=== PATIENT | female | born 1930 | race Caucasian/White ===

== ENCOUNTER 2017-05-27 07:07 | Inpatient (IN) | payer MEDICARE, OTHER ==
--- NOTE | 2017-05-27 08:10 | RAD ---
SINGLE VIEW OF THE CHEST: DATE: 08/19/16. HISTORY: Rectal bleeding for 3-4 days and altered mental status. FINDINGS: A single view of the chest shows a normal-size cardiomediastinal silhouette with atherosclerotic lianne cifications in the aorta. There is no evidence of consolidation, mass, or pleural effusion. Verteb roplasty cement is seen in the spine. IMPRESSION: 1. No evidence of acute cardiopulmonary disease. 2. Atherosclerotic disease. POS: [facility]
[2017-05-27 08:50] LABS: Red Blood Cell (RBC) Count 2.64 mill/uL (4.20-5.40); White Blood Cell (WBC) Count 6.4 thou/uL (4.8-10.8)
[2017-05-27 08:56] LABS: #Eosinphils 0.1 thou/uL (0.0-0.7); #Lymphocytes 1.9 thou/uL (1.20-3.40); #Monocytes 0.7 thou/uL (0.11-0.59); #Neutrophils 3.7 thou/uL (1.40-6.50); %Basophils 0.8 % (0.0-1.0); %Eosinophils 1.9 % (0.0-10.0); %Lymphocytes 29.6 % (21.0-51.0); %Monocytes 10.1 % (0.0-10.0); Mean Platelet Volume 9.4 fL (7.4-10.4)
[2017-05-27 09:07] LABS: ALT (SGPT) 9 U/L (8-55); AST (SGOT) 14 U/L (5-34); Alkaline Phosphatase 59 U/L (40-150); Anion Gap 12 mmol/L (10-20); BUN (Urea Nitrogen) 29 mg/dL (9.8-20.1); Bilirubin, Total 0.3 mg/dL (0.2-1.2); CK (CPK) 28 U/L (29-168); Calc. Creatinine Clearance 0 mL/min (70-130); Calcium 8.4 mg/dL (7.8-10.44); Carbon Dioxide 26 mmol/L (23-31); Chloride 104 mmol/L (98-107); Estimated GFR-MDRD 69; Globulin 2.6 g/dL (2.4-3.5); Magnesium 2.1 mg/dL (1.6-2.6); Protein, Total 5.9 g/dL (6.0-8.3)
[2017-05-27 09:12] LABS: Troponin I Less than 0.010 ng/mL (< 0.028)
[2017-05-27 10:28] LABS: Bilirubin Negative (Negative); Blood, Urine Negative (Negative); Glucose, Urine (Dipstick) Negative (Negative); Ketone, Urine Negative (Negative); Nitrite Positive (Negative); Protein, Urine (Dipstick) Negative (Neg-Trace); Urobilinogen 0.2 mg/dL (0.2-1.0)
[2017-05-27 10:30] LABS: Bacteria/HPF 4+ HPF (None Seen); Hyaline Casts/LPF 0-3 HYALINE CAST LPF (0-3 Hyaline); RBC/HPF 0-3 HPF (0-3); Squamous Epithelial 0-3 HPF (0-3)
[2017-05-27 10:40] LABS: Renal Epithelial None Seen HPF (0-3); Transitional Epithelial NONE SEEN HPF (0-3)
[2017-05-27] MEDS ORDERED: Ondansetron HCl/PF 4 MG/2 ML Vial IVP PRN ×2 (11:18→11:23)
[2017-05-27] MEDS ORDERED: Ondansetron ODT 4 MG TAB PO PRN ×2 (11:18→11:23)
[2017-05-27] MEDS ORDERED: Acetaminophen 325 MG TAB PO PRN ×2 (11:19→11:23)
--- NOTE | 2017-05-27 11:19 | CT ---
CT OF ABDOMEN AND PELVIS WITH IV CONTRAST: Date: 05/27/17 INDICATION: History of rectal bleeding, currently on Plavix. COMPARISON: None. FINDINGS: There is mild bibasilar atelectasis. Gallbladder is surgically absent. The liver, spleen, pancreas, and adrenal glands appear within normal limits. There is a 1.7 cm gastr ic diverticulum seen off the posterior aspect of the fundus. There are small left renal cysts. No hydronephrosis evident. No free fluid is evident. There is wall thickening involving one segment of the distal transverse colon, best seen on image 45 of series 2, which may reflect an area of focal colitis; however, malignancy cannot be excluded wit hin this location. This is also seen on image 37 of series 601. Respiratory motion artifact slightly limits image detail. No drainable fluid collection is evident. There is a mild amount of retained stool within the colon. There are a few scattered colonic diverticula. The bladder is unremarkable. There is a hip screw and side plate seen within the right proximal femur traversing a healed right i ntertrochanteric hip fracture. There is diffuse osteopenia. There are degenerative changes of the sy mphysis pubis. There is vertebroplasty change involving T11, T12, L1, and L2. There is a stable infe rior end plate compression abnormality of L3. There are mild compression abnormalities involving T9 and T10 of undetermined chronicity. IMPRESSION: 1. Focal area of wall thickening involving the distal transverse colon may reflect focal region of colitis; however, an annular mass within this location cannot be entirely excluded. Recommend GI con sultation and consideration for endoscopy. 2. Age-indeterminate compression abnormalities of T9 and T10. 3. Stable inferior end plate compression abnormality of L3 and stable compression abnormalities wit h vertebroplasty change of T11 through L2. 4. Left renal cyst. 5. Bibasilar atelectasis. 6. Cholecystectomy. POS: [facility]
[2017-05-27] MEDS ORDERED: Mag-Al 1200 mg/1200 mg/30 ML UDCUP PO PRN (11:23)
[2017-05-27] MEDS ORDERED: Eucerin (Mineral Oil/Petrolatum,White) 30 gm Jar TOP PRN (11:23)
[2017-05-27] MEDS ORDERED: Loratadine 10 MG TAB PO PRN (11:23)
[2017-05-27] MEDS ORDERED: Artificial Tears 18 DROP/0.9 ML EA EYE PRN (11:23)
[2017-05-27] MEDS ORDERED: Diabetic Tussin 200 MG/10 ML UDCUP PO PRN (11:23)
[2017-05-27] MEDS ORDERED: Milk Of Magnesia 30 ML UDCUP PO PRN (11:23)
[2017-05-27] MEDS ORDERED: Sodium Chloride 0.65% Nasal 44 ML BOT EA NARE PRN (11:23)
[2017-05-27] MEDS ORDERED: Senokot 8.6 MG TAB PO PRN (11:23)
[2017-05-27] MEDS ORDERED: Loperamide HCl 2 MG CAP PO PRN (11:23)
[2017-05-27] MEDS ORDERED: Sodium Chloride 0.9% 1,000 ML IV SCH (11:30)
[2017-05-27 13:40] VITALS: BMI 20.5
[2017-05-27] MEDS ORDERED: ISOVUE-370 76%-LOCM 1 ML ONE (13:40)
[2017-05-27] MEDS: Sodium Chloride 0.9% 1,000 ML IV SCH ×2 (13:46→22:13)
--- NOTE | 2017-05-27 14:09 | CON ---
DATE OF CONSULTATION: 05/27/2017 HISTORY OF PRESENT ILLNESS: The patient is an 86-year-old female who was referred from [facility] for GI bleeding. The patient is demented and adds nothing to history of present illn ess. According to family members, the patient had a similar GI bleed and this may have been 8-9 yea rs ago in a different location. Family is unsure what workup was performed. PAST MEDICAL HISTORY: Includes hemochromatosis, altered mental status, delusional disorders, chroni c obstructive pulmonary disease, hyperlipidemia, dementia, osteoarthritis, nontraumatic intercerebra l hemorrhage, femur fracture, hypertension. PAST SURGICAL HISTORY: Cataract surgery, liver biopsy, bunionectomy, back surgery. ALLERGIES: No known allergies. MEDICATIONS: Nuedexta 1 p.o. b.i.d., potassium chloride 10 mEq 1 p.o. daily, citalopram 20 mg p.o. daily, Exelon 1 patch daily, Plavix 75 mg daily, lisinopril 10 mg p.o. daily, tramadol 50 mg 2 p.o. daily, Tylenol p.o. q.6 h. p.r.n., Ativan 0.5 mg 1 p.o. t.i.d., melatonin 5 mg 1 p.o. daily. FAMILY HISTORY: Unobtainable. REVIEW OF SYSTEMS: Unobtainable. PHYSICAL EXAMINATION: GENERAL: Shows a pale elderly female in no acute distress. VITAL SIGNS: Temperature 97.6, pulse 83, respiratory rate 16, blood pressure 110/83. HEENT: Unremarkable. NECK: Supple. CHEST: Clear. CARDIOVASCULAR: Regular rate and rhythm. ABDOMEN: Soft and nontender, without organomegaly or masses. Bowel sounds are present and normoact lucero. RECTAL: Deferred. EXTREMITIES: Normal. NEUROLOGIC: Nonfocal. LABORATORY: Shows a hemoglobin 8.1, hematocrit 26.0 with MCV of 98.4. Previous hemoglobin was 10.7 in September of this year. Platelet count is 87,000. PT is not performed. Chemistries show a BUN 2 9, creatinine 0.79. CK 28, albumin 3.3. Urinalysis shows positive nitrites, small leukocyte estera se, 11-[address]BCs. [address]dominal and pelvic CT performed shows focal area of wall thickening involving the distal transverse colon which may reflect focal region of colitis or annular mass, unconfirmed comp ression fractures of T9 and T10 and previous cholecystectomy. ASSESSMENT: 1. Gastrointestinal bleed. 2. Anemia secondary to gastrointestinal blood loss. 3. Abnormal CT scan of the transverse colon. 4. Dementia. RECOMMENDATIONS: EGD and colonoscopy in the a.m.
[2017-05-27] MEDS: metroNIDAZOLE 500 MG in Premix Bag 1 BAG IVPB SCH ×2 (14:56→22:13)
[2017-05-27 15:03] LABS: Hematocrit 27.3 % (36.0-47.0)
--- NOTE | 2017-05-27 15:03 | HP ---
PRIMARY CARE PHYSICIAN: [facility] call admission. REASON FOR ADMISSION: [facility]. HISTORY OF PRESENT ILLNESS: An 86-year-old female who has underlying advanced dementia who [facility]. From there, this patient was sent for rectal bleed. Patient had 3 bloody stools at [facility] and this morning, bright red blood per rectum was worse. Her vitals where stable, but they sent her to the emergency room for evaluation. This patient is on Plavix [facility]. In the emergency room, patient was having blood in the rectal vault. The patient hemoglobin on admission, 8.1. She also had elevated BUN, there was concern of underlying GI bleed. It was not clear whether upper or lower, but patient was requiring admission. This patient has [facility] D[facility]. This patient is extremely demented and she does not have any clue of her presentation and not able to provide any history, so history only obtained from ER record and [facility] record. REVIEW OF SYSTEMS: All review of system reviewed with the patient, but unable to review at this point and not reliable because of advanced dementia. 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 PAST SURGICAL HISTORY: Cataract surgery, liver biopsy, bunionectomy, back surgery, laminectomy. PAST PSYCHIATRIC HISTORY: Anxiety, depression, dementia, delusional disorder. SOCIAL HISTORY: [facility]. No history of tobacco, alcohol or illicit drug abuse. She is a former smoker. She quit smoking in 2016. CURRENT HOME MEDICATIONS: Nuedexta 1 tablet p.o. daily, potassium chloride 10 mEq daily, Celexa 20 mg p.o. daily, Exelon patch daily, Plavix 75 mg p.o. daily , lisinopril 10 mg p.o. daily, tramadol 50 mg twice daily, Ativan 0.5 mg 3 times daily, melatonin 5 mg p.o. at bedtime. ALLERGIES: No known drug allergies. EMERGENCY ROOM COURSE: Reviewed. FAMILY HISTORY: Unable to obtain due to dementia PHYSICAL EXAMINATION: VITAL SIGNS: On arrival, blood pressure 122/72, pulse 82, respiratory rate 16, temperature 98.6, saturation 95% on room air, weight 54.4 kilograms. GENERAL: Patient is currently alert, arousable, presently demented. No obvious acute distress. HEAD: Normocephalic, atraumatic. EYES: Pupils round, reactive to light. Extraocular muscles intake. ENT: Oropharynx within normal limits. Moist mucous membranes. No oral lesions. No pharyngeal erythema, no exudate. NECK: Supple. Range of motion is normal. No meningeal signs of irritation. LUNGS: Clear. CARDIAC: S1, S2 regular. No murmur, no gallop, no rub. ABDOMEN: Soft, bowel sounds present, nontender, nondistended. No organomegaly , no mass, no suprapubic tenderness. Rectal examination done showing gross blood. BACK: Examination unremarkable, no CVA tenderness. EXTREMITIES: Upper extremity passive movements of all joints are normal. Lower extremities, no edema. Good peripheral pulsation. SKIN: No skin rash. HEMATOLOGICAL SYSTEM: No lymphadenopathy. PSYCHIATRIC: Flat affect. NEUROLOGIC: Nonfocal examination. No focal neurological deficit noted. SIGNIFICANT LABORATORY DATA AND IMAGIN. CBC: WBC 6.4, hemoglobin 8.1, platelet 87. 2. BMP: Sodium 138, potassium 4.2, chloride 104, carbon dioxide 26, anion gap 12, BUN 29, creatinine 0.79, glucose 93, calcium 8.4, and magnesium 2.1. 3. LFT: AST 14, ALT 9, alkaline phosphatase 59, albumin 3.3. CK 28, CK-MB 1.2 , troponin I less than 0.010. Urinalysis is suggestive of urinary tract infection. 4. Chest x-ray based on my review, no acute cardiopulmonary process. CT of the abdomen and pelvis based on my review, focal area of wall thickening of the distal transverse colon suggestive of colitis, bibasilar atelectasis. ASSESSMENT AND PLAN/IMPRESSION: 1. Acute gastrointestinal bleed. This patient has rectal bleed. This patient has underlying colitis. At this point, we will send stool for infection workup , we will consult Gastroenterology. This patient will need colonoscopy. We will start empiric Levaquin and Flagyl. 2. Anemia due to acute blood loss. Patient's hemoglobin will be monitored later on again today and if her hemoglobin drops, then we will consider blood transfusion. 3. Thrombocytopenia. We will monitor platelet count. 4. Urinary tract infection. Patient is kept on levofloxacin that will cover and will send urine culture. 5. Acute colitis, rule out infectious etiology, may be related with ischemic colitis. We will do colonoscopy with a Gastroenterology consultation and the patient and will have a stool workup for infection workup and patient is already on empiric antibiotic therapy. 6. History of hypertension. The patient's blood pressure runs lower side and that is why we will hold on antihypertensive medication. 7. History of anxiety and depression. We will continue Celexa 20 mg p.o. daily. 8. Advanced Alzheimer's dementia. We will continue Exelon patch 4.6 mg topical daily. 9. Deep venous thrombosis prophylaxis, sequential compression device boots. 10. Gastrointestinal prophylaxis, Pepcid 20 mg IV b.i.d. 11. Code status: The patient has out of hospital DNR and that is confirmed, patient will have DNR while in hospital. Disposition plan based on clinical course. We are expecting patient's stay in the hospital more than 2 midnights. Plan of care discussed with the patient. CANDACED
[2017-05-27] MEDS ORDERED: GoLYTELY 4,000 ml Bottle PO SCH (17:00)
[2017-05-27] MEDS ORDERED: Non-Formulary Item 1 EACH (Melatonin [Melatonin] 10 MG) PO SCH (21:00)
[2017-05-27] MEDS: Lorazepam 0.5 MG TAB PO SCH (21:59)
[2017-05-27] MEDS: Famotidine/PF 20 mg/2ml Vial SLOW IVP SCH (22:00)
[2017-05-27] MEDS: Melatonin 3 MG TAB PO SCH (22:00)
[2017-05-28 05:21] LABS: #Basophils 0.1 thou/uL (0.0-0.2); #Eosinphils 0.1 thou/uL (0.0-0.7); #Lymphocytes 1.3 thou/uL (1.20-3.40); #Monocytes 0.8 thou/uL (0.11-0.59); #Neutrophils 3.7 thou/uL (1.40-6.50); %Eosinophils 2.1 % (0.0-10.0); %Lymphocytes 21.1 % (21.0-51.0); %Monocytes 13.7 % (0.0-10.0); Hematocrit 25.5 % (36.0-47.0); Mean Platelet Volume 9.1 fL (7.4-10.4); Red Blood Cell (RBC) Count 2.58 mill/uL (4.20-5.40); White Blood Cell (WBC) Count 5.9 thou/uL (4.8-10.8)
[2017-05-28 05:36] LABS: ALT (SGPT) 8 U/L (8-55); AST (SGOT) 16 U/L (5-34); Alkaline Phosphatase 54 U/L (40-150); Anion Gap 13 mmol/L (10-20); BUN (Urea Nitrogen) 14 mg/dL (9.8-20.1); Bilirubin, Total 0.3 mg/dL (0.2-1.2); Calc. Creatinine Clearance 48 mL/min (70-130); Calcium 8.2 mg/dL (7.8-10.44); Carbon Dioxide 24 mmol/L (23-31); Chloride 105 mmol/L (98-107); Estimated GFR-MDRD 80; Globulin 2.4 g/dL (2.4-3.5); Protein, Total 5.7 g/dL (6.0-8.3)
[2017-05-28] MEDS: metroNIDAZOLE 500 MG in Premix Bag 1 BAG IVPB SCH ×2 (07:05→15:00)
[2017-05-28] MEDS: Sodium Chloride 0.9% 1,000 ML IV SCH (07:05)
[2017-05-28] MEDS ORDERED: Non-Formulary Item 1 EACH (Potassium Chloride [Potassium Chloride] 10 MEQ) PO SCH (09:00)
[2017-05-28] MEDS: Lorazepam 0.5 MG TAB PO SCH ×2 (09:07→17:28)
[2017-05-28] MEDS: Saccharomyces boulardii 250 MG CAP PO SCH (09:07)
[2017-05-28] MEDS: Potassium Chloride 10 MEQ TAB PO SCH (09:08)
[2017-05-28] MEDS: Famotidine/PF 20 mg/2ml Vial SLOW IVP SCH (09:09)
[2017-05-28] MEDS: Rivastigmine 4.6mg/24 Hour PATCH TOP SCH (09:10)
[2017-05-28] MEDS ORDERED: Propofol 200 MG/20 ML VIAL ONE (13:12)
--- NOTE | 2017-05-28 13:50 | PDOC.PN ---
- Subjective Encounter Start Date: 05/28/17 Encounter Start Time: 11:00 Subjective: awake, not oriented -: no abd pain or in distress - Objective Resuscitation Status: Resuscitation Status DNR:Do Not Resuscitate MAR Reviewed: Yes Vital Signs & Weight: Vital Signs (12 hours) Temp Pulse Resp BP Pulse Ox 05/28/17 08:00 97.9 F 85 16 129/74 94 L 05/28/17 04:00 98.2 F 81 16 124/77 95 Weight Weight 112 lb Result Diagrams: 05/28/17 03:55 05/28/17 03:55 Phys Exam - Physical Examination HEENT: PERRLA, moist MMs Neck: no JVD, supple Respiratory: no wheezing, no rales Cardiovascular: RRR, no significant murmur Gastrointestinal: soft, non-tender, no distention, positive bowel sounds Musculoskeletal: no edema, pulses present Neurological: non-focal, moves all 4 limbs Dx/Plan (1) GI bleed Code(s): K92.2 - GASTROINTESTINAL HEMORRHAGE, UNSPECIFIED Status: Acute Qualifiers: GI bleed type/associated pathology: unspecified gastrointestinal hemorrhage type Qualified Code(s): K92.2 - Gastrointestinal hemorrhage, unspecified (2) Anemia Code(s): D64.9 - ANEMIA, UNSPECIFIED Status: Acute Qualifiers: Anemia type: unspecified type Qualified Code(s): D64.9 - Anemia, unspecified (3) COPD (chronic obstructive pulmonary disease) Status: Chronic Qualifiers: COPD type: chronic bronchitis Chronic bronchitis type: unspecified Qualified Code(s): J42 - Unspecified chronic bronchitis (4) CVA (cerebral vascular accident) Code(s): I63.9 - CEREBRAL INFARCTION, UNSPECIFIED Status: Chronic Qualifiers: CVA mechanism: unspecified Qualified Code(s): I63.9 - Cerebral infarction, unspecified (5) Dementia Code(s): F03.90 - UNSPECIFIED DEMENTIA WITHOUT BEHAVIORAL DISTURBANCE Status: Chronic Qualifiers: Dementia type: Alzheimer's disease Dementia behavioral disturbance: without behavioral disturbance (6) HTN (hypertension) Code(s): I10 - ESSENTIAL (PRIMARY) HYPERTENSION Status: Chronic Qualifiers: Hypertension type: essential hypertension Qualified Code(s): I10 - Essential (primary) hypertension - Plan for EGD, colonoscopy today by -: hemoglobin around 8g -: is on levaquin and flagyl -: stool studies x1 is -ve -: will f/u * . Review of Systems - Medications/Allergies Allergies/Adverse Reactions: Allergies Allergy/AdvReac Type Severity Reaction Status Date / Time No Known Drug Allergies Allergy Verified 08/19/16 14:53 Medications: Current Medications Acetaminophen (Tylenol) 650 mg PO Q4H PRN PRN Reason: Headache/Fever or Pain Al Hydroxide/Mg Hydroxide (Maalox) 30 ml PO Q6H PRN PRN Reason: Heartburn or Indigestion Artificial Tears (Tears Naturale) 0 drop EA EYE PRN PRN PRN Reason: Dry Eyes Citalopram Hydrobromide (Celexa) 20 mg PO DAILY COUNT INCLUDES THE [facility] Last Admin: 05/28/17 09:08 Dose: 20 mg Famotidine (Pepcid) 20 mg SLOW IVP Q12HR COUNT INCLUDES THE [facility] Last Admin: 05/28/17 09:09 Dose: 20 mg Guaifenesin (Robitussin Sf) 200 mg PO Q4H PRN PRN Reason: Cough Hydralazine HCl (Apresoline) 10 mg SLOW IVP Q4H PRN PRN Reason: Systolic BP > 180 Sodium Chloride (Normal Saline 0.9%) 1,000 mls @ 100 mls/hr IV .Q10H COUNT INCLUDES THE [facility] Last Admin: 05/28/17 07:05 Dose: 1,000 mls Levofloxacin 500 mg/ Device 100 mls @ 100 mls/hr IVPB 1500 COUNT INCLUDES THE [facility] Last Admin: 05/27/17 15:43 Dose: 100 mls Metronidazole 500 mg/ Device 100 mls @ 100 mls/hr IVPB Q8HR COUNT INCLUDES THE [facility] Last Admin: 05/28/17 07:05 Dose: 100 mls Loperamide HCl (Imodium) 2 mg PO PRN PRN PRN Reason: Diarrhea/Loose Stools Loratadine (Claritin) 10 mg PO DAILYPRN PRN PRN Reason: Sinus Symptoms Lorazepam (Ativan) 0.5 mg PO TID COUNT INCLUDES THE [facility] Last Admin: 05/28/17 09:07 Dose: 0.5 mg Magnesium Hydroxide (Milk Of Magnesium) 30 ml PO DAILYPRN PRN PRN Reason: Constipation Melatonin (Melatonin) 10.5 mg PO HS COUNT INCLUDES THE [facility] Last Admin: 05/27/17 22:00 Dose: 10.5 mg Mineral Oil/White Petrolatum (Eucerin Cream) 0 gm TOP BIDPRN PRN PRN Reason: Dry Skin Ondansetron HCl (Zofran Odt) 4 mg PO Q6H PRN PRN Reason: Nausea/Vomiting Ondansetron HCl (Zofran) 4 mg IVP Q6H PRN PRN Reason: Nausea/Vomiting Potassium Chloride (Klor-Con 10) 10 meq PO DAILY COUNT INCLUDES THE [facility] Last Admin: 05/28/17 09:08 Dose: 10 meq Rivastigmine (Exelon Patch) 4.6 mg TOP DAILY COUNT INCLUDES THE [facility] Last Admin: 05/28/17 09:10 Dose: 4.6 mg Saccharomyces Boulardii (Florastor) 250 mg PO DAILY COUNT INCLUDES THE [facility] Last Admin: 05/28/17 09:07 Dose: 250 mg Senna (Senokot) 2 tab PO HSPRN PRN PRN Reason: Constipation Sodium Chloride (Flush - Normal Saline) 10 ml IVF Q12HR COUNT INCLUDES THE [facility] Last Admin: 05/28/17 09:11 Dose: Not Given Sodium Chloride (Flush - Normal Saline) 10 ml IVF PRN PRN PRN Reason: Saline Flush Sodium Chloride ([place] Nasal [place] 0.65%) 0 ml EA NARE QIDPRN PRN PRN Reason: Nasal Congestion
[2017-05-28 15:22] VITALS: TEMP 98.4
--- NOTE | 2017-05-29 00:23 | OP ---
REASON FOR CONSULT: 1. Iron-deficiency anemia and some rectal bleeding. 2. CAT scan with focal thickening of the distal transverse colon. POSTOPERATIVE DIAGNOSES: 1. Esophagogastroduodenoscopy notable for two arteriovenous malformations; one in the anterior wall of the duodenum and one in the second portion of duodenum, these were both cauterized with a 7-Fren ch heater probe. They were not bleeding. Otherwise, normal esophagogastroduodenoscopy. 2. Colon mass circumferential about 55 cm near obstructing ulcerated likely the source of anemia. Multiple biopsies obtained. This was a malignant appearance. RECOMMENDATIONS: 1. Await biopsies. 2. Consideration to palliative care versus surgical care. In light of patient's dementia, the pall iative care may be very reasonable, although she may obstruct soon. ANESTHESIA: TIVA. PROCEDURE IN DETAIL: After the patient was informed of the risks, benefits, possible complications of endoscopy including perforation, bleeding, reactions to medication and aspiration, informed conse nt was obtained. The patient brought to endoscopy suite where she was sedated in gradual fashion. Once she was comfortable, a bite block was placed in incisural orifice. The endoscope was advanced through the esophagus, stomach and second and third portion of duodenum and slowly removed. There w as good visualization of mucosa. There were no masses, lesions or arteriovenous malformations ident ified, massive lesions identified, two AVMs; one in the anterior wall of the bulb, one in the secon d portion of duodenum, and these were nonbleeding. They were cauterized with 7-Wolof heater probe. The remainder of the stomach was normal from retroflexed views. There was a small hiatal hernia a bout 5 cm in size. There was no Kirit's ulcers or erosions. The scope was removed. The patient was turned in the room. A rectal examination was performed. The endoscope was advanced through anal canal through the colon to the cecum which was identified by the appendiceal orifice a nd ileocecal valve. About 55 cm from the anorectal verge, there was a circumferential constricting mass, diffusely ulcerated, first thought that maybe this was ischemic change, but it seems to have r aised margins on the edges more like an apple-core lesion. Multiple biopsies were obtained and subm itted to Pathology. No other lesions were identified. The prep was very poor. The scope was remov ed. The patient tolerated the procedure well with no other complications.
[2017-05-29] MEDS: Lorazepam 0.5 MG TAB PO SCH ×3 (02:16→14:03)
[2017-05-29] MEDS: Famotidine/PF 20 mg/2ml Vial SLOW IVP SCH ×2 (02:16→09:53)
[2017-05-29] MEDS: Melatonin 3 MG TAB PO SCH (02:17)
[2017-05-29 05:53] LABS: Hematocrit 26.4 % (36.0-47.0)
[2017-05-29 07:47] VITALS: BP 144/77
[2017-05-29] MEDS: Saccharomyces boulardii 250 MG CAP PO SCH (09:53)
[2017-05-29] MEDS: Potassium Chloride 10 MEQ TAB PO SCH (09:53)
[2017-05-29] MEDS: Rivastigmine 4.6mg/24 Hour PATCH TOP SCH (09:54)
--- NOTE | 2017-05-29 12:16 | PRG ---
DATE OF SERVICE: 05/29/2017 The patient is somewhat sleepy without complaints when aroused. OBJECTIVE: VITAL SIGNS: Temperature 98.4, pulse 80, respiratory rate 12, blood pressure 144/74. CHEST: Clear. CARDIOVASCULAR: Regular rate and rhythm. ABDOMEN: Soft, nontender, without organomegaly or masses. LABORATORY DATA: Shows hemoglobin 8.7, hematocrit 26.4, CEA was 7.70. 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 ASSESSMENT: 1. Colon cancer. 2. Anemia secondary to colon cancer. 3. Dementia. RECOMMENDATIONS: 1. Agree with the plans for hospice. 2. Iron replacement therapy. 3. We will sign off.
--- NOTE | 2017-05-29 15:59 | PDOC.PN ---
- Subjective Encounter Start Date: 05/29/17 Encounter Start Time: 10:25 Subjective: sleeping, not in distress - Objective Resuscitation Status: Resuscitation Status DNR:Do Not Resuscitate MAR Reviewed: Yes Vital Signs & Weight: Vital Signs (12 hours) Temp Pulse Resp BP Pulse Ox 05/29/17 08:00 98.4 F 80 12 05/29/17 07:46 98.4 F 80 12 144/77 H 93 L Weight Weight 112 lb Result Diagrams: 05/29/17 04:54 05/28/17 03:55 Phys Exam - Physical Examination HEENT: PERRLA, moist MMs Neck: no JVD, supple Respiratory: no wheezing, no rales Cardiovascular: RRR, no significant murmur Gastrointestinal: soft, no distention, positive bowel sounds Musculoskeletal: no edema, pulses present Neurological: non-focal, moves all 4 limbs Dx/Plan (1) GI bleed Code(s): K92.2 - GASTROINTESTINAL HEMORRHAGE, UNSPECIFIED Status: Resolved Comment: sec to malignancy (2) Anemia Code(s): D64.9 - ANEMIA, UNSPECIFIED Status: Acute Qualifiers: Anemia type: unspecified type Qualified Code(s): D64.9 - Anemia, unspecified (3) COPD (chronic obstructive pulmonary disease) Status: Chronic Qualifiers: COPD type: chronic bronchitis Chronic bronchitis type: unspecified Qualified Code(s): J42 - Unspecified chronic bronchitis (4) CVA (cerebral vascular accident) Code(s): I63.9 - CEREBRAL INFARCTION, UNSPECIFIED Status: Chronic Qualifiers: CVA mechanism: unspecified Qualified Code(s): I63.9 - Cerebral infarction, unspecified (5) Dementia Code(s): F03.90 - UNSPECIFIED DEMENTIA WITHOUT BEHAVIORAL DISTURBANCE Status: Chronic Qualifiers: Dementia type: Alzheimer's disease Dementia behavioral disturbance: without behavioral disturbance (6) HTN (hypertension) Code(s): I10 - ESSENTIAL (PRIMARY) HYPERTENSION Status: Chronic Qualifiers: Hypertension type: essential hypertension Qualified Code(s): I10 - Essential (primary) hypertension (7) Adenocarcinoma, colon Code(s): C18.9 - MALIGNANT NEOPLASM OF COLON, UNSPECIFIED Status: Acute - Plan d/w son at bedside -: dc plan to snf with hospice -: macrobid for uti * .
[2017-05-29] MEDS ORDERED: Ciprofloxacin 500 MG TAB PO SCH (20:00)
--- NOTE | 2017-05-29 22:39 | DIS ---
DATE OF ADMISSION: 05/27/2017 DATE OF DISCHARGE: 05/29/2017 DISCHARGE DISPOSITION: To long term with hospice. PRIMARY DISCHARGE DIAGNOSES: Adenocarcinoma of colon with GI bleed and anemia. SECONDARY DISCHARGE DIAGNOSES: Chronic obstructive pulmonary disease, advanced dementia, history of cerebrovascular accident and hypertension. PROCEDURES DONE DURING HOSPITALIZATION: The patient has had EGD with colonoscopy done by Dr. Arriaza on 05/28/2017. This showed circumferential colonic mass about 55 cm, which was near obstructing and ulcerated. Histopathology from the mass confirmed invasive moderate to poorly differentiated adenocarcinoma. CT of the abdomen and pelvis done on the day of admission showed focal area of wall thickening involving distal transverse colon , old compression fractures of T9 and T10. H\T\H 8.7 and 26 with platelet count of 197. Carcinoembryonic antigen levels were 7.7, albumin 3.3. Urine culture grew E. coli, sensitive to Macrobid, but was ESBL positive. DISCHARGE MEDICATIONS: Macrobid 100 mg p.o. twice daily for 4 days, Colace 100 mg p.o. twice daily, citalopram 20 mg p.o. daily, melatonin 5 mg p.o. at bedtime , Ativan 0.5 mg p.o. 3 times daily p.r.n., K-Dur 10 mEq p.o. daily, rivastigmine patch 4.6 mg topical daily, Ultram 100 mg twice daily. ALLERGIES: No known drug allergies. INPATIENT CONSULTS: Dr. Arriaza/Joel for Gastroenterology. DISCHARGE PLAN: Patient to follow up with her primary care physician in 1 week. BRIEF COURSE DURING HOSPITALIZATION: The patient initially got admitted after she was sent from long term for rectal bleeding. She had 3 bloody stools at the long term prior to arrival. CT of the abdomen and pelvis done was suspicious for circumferential mass in the transverse colon. She has had consultation with Dr. Maldonado for Gastroenterology. Upper and lower endoscopies were done, which showed circumferential mass in the transverse colon. The biopsies have confirmed invasive adenocarcinoma. As the patient has advanced dementia and is 86 years old, family did not want any further aggressive measures. In view of this, she is being discharged to long term with hospice. I have had family consultation with her son and [id number]. Please note patient has advanced dementia and is not oriented. A total of 35 minutes was spent on discharge plan. Please see a [id number] documentation for the day of discharge on [facility]. [facility]
== END 2017-05-29 16:36 | disposition hospice, home (50) | DRG 375 ==
LOC: ERS 07:07 → T4-B 09:42
PROVIDERS: ADMIT Internal Medicine; ATTEND Internal Medicine
PROC: 0D598ZZ Destruction of Duodenum, Via Natural or Artificial Opening Endoscopic (ICD-10-PCS; principal; 2017-05-29)
PROC: 0DBL8ZX Excision of Transverse Colon, Via Natural or Artificial Opening Endoscopic, Diagnostic (ICD-10-PCS; 2017-05-29)
DX: C18.4 Malignant neoplasm of transverse colon (principal); D62 Acute posthemorrhagic anemia; D69.6 Thrombocytopenia, unspecified; I69.351 Hemiplegia and hemiparesis following cerebral infarction affecting right dominant side; K92.2 Gastrointestinal hemorrhage, unspecified; N39.0 Urinary tract infection, site not specified; G30.9 Alzheimer's disease, unspecified; F02.80 Dementia in other diseases classified elsewhere, unspecified severity, without behavioral disturbance, psychotic disturbance, mood disturbance, and anxiety; J44.9 Chronic obstructive pulmonary disease, unspecified; B96.20 Unspecified Escherichia coli [E. coli] as the cause of diseases classified elsewhere; Z87.891 Personal history of nicotine dependence; E78.5 Hyperlipidemia, unspecified; M19.90 Unspecified osteoarthritis, unspecified site; I10 Essential (primary) hypertension; Q27.33 Arteriovenous malformation of digestive system vessel; M81.0 Age-related osteoporosis without current pathological fracture; F41.9 Anxiety disorder, unspecified; F32.9 Major depressive disorder, single episode, unspecified; Z66 Do not resuscitate; K44.9 Diaphragmatic hernia without obstruction or gangrene; F22 Delusional disorders; E83.119 Hemochromatosis, unspecified
CPT/HCPCS: 36415; 51701; 71010; 74177; 80053; 81003; 81015; 82378; 82550; 82553; 83735; 84484; 85014; 85018; 85025; 86850; 86900; 86901; 87077; 87081; 87086; 87186; 87324; 87449; 88305; 94760; A4216; A4353; J1956; J2704; S0028